=== PATIENT | female | born 1965 | race Caucasian/White ===

== ENCOUNTER 2016-08-23 08:41 | Day surgery (SDC) | payer OTHER ==
[2016-08-23] VITALS (13 sets, daily range): BP systolic 95–154; BP diastolic 59–95; PULSE 61–76; RESP 10–20; O2SAT 97–100
[~2016-08-23] VITALS: Ht 166.4 cm; Wt 53.4 kg
[2016-08-23] MEDS: Lactated Ringer's 1,000 ML IV SCH ×3 (05:00→10:50)
[~2016-08-23 08:41] MED LIST: ALPR2TAB6 PO; AMPH20TA5 PO; CeFAZolin Inj 2 GM in IV Premix 1 EACH IV ONE; ESTR1VAG VG; L.AC1CAP6 PO; PROZ20 PO
[2016-08-23] MEDS ORDERED: Dexamethasone 4 mg/mL Inj ONE (08:42)
[2016-08-23] MEDS ORDERED: Lidocaine PF 1% 30 mL Inj ONE (08:42)
[2016-08-23] MEDS ORDERED: Ondansetron 2 mg/mL 2 mL Inj ONE (08:42)
[2016-08-23] MEDS ORDERED: fentaNYL-PF 50 mCg/mL 2 mL Inj ONE (08:42)
[2016-08-23] MEDS ORDERED: Propofol 10,000 mCg/mL 20 mL Inj ONE (08:42)
[2016-08-23] MEDS ORDERED: Lactated Ringer's 1,000 ML IV SCH (10:30)
[2016-08-23] MEDS ORDERED: Dexamethasone 4 mg/mL Inj IVPUSH PRN (10:30)
[2016-08-23] MEDS ORDERED: Ondansetron 2 mg/mL 2 mL Inj IVPUSH PRN ×2 (10:30→13:20)
[2016-08-23] MEDS ORDERED: Phenylephrine 10,000 mCg/mL Inj IVPUSH PRN (10:30)
[2016-08-23] MEDS ORDERED: Lactated Ringer's 500 ML IV PRN (10:30)
[2016-08-23] MEDS ORDERED: EPHEDrine Sulfate 50 mg/mL Inj IVPUSH PRN (10:30)
[2016-08-23] MEDS ORDERED: MetoCLOpramide 5 mg/mL 2 mL Inj IVPUSH PRN (10:30)
[2016-08-23] MEDS ORDERED: fentaNYL-PF 50 mCg/mL 2 mL Inj IVPUSH PRN (10:30)
--- NOTE | 2016-08-23 10:30 | PCM.HPANE ---
Patient Data Date of Service: August 23, 2016 (2264) Surgeon Admitting Provider: Attending Provider:Pedro Griffin MD Primary Care Physician:Rosie Other Provider:Carlota Bolivar Anesthesia Reason for Visit Left Breast Cancer Ht/WT & BMI Height (Feet): 5 Height (Inches): 5.50 Weight (Kilograms): 53.4 Body Mass Index 19.00 Allergies Uncoded Allergies: OPIATES (Adverse Reaction, Severe, N&V, 08/20/16) Past Anesthesia History Anesthesia History: Denies:: Anesthesia Reactions, Malignant Hyperthermia Diabetes History Hx Diabetes?: No MRSA MRSA: No Medications Home Meds Incl Beta Mega: No Reported Medications Fluoxetine (Prozac)20 Mg [id number] Mg PO DAILY Ref 0 08/14/16 L.acidoph & Paracasei,B.lactis (Probiotic)10 Billion Cell Capsule2 Each PO DAILY 08/05/16 Estradiol (Estring)1 Each Vag.ring1 Each VG Q 90 DAYS 08/05/16 Alprazolam 2 Mg Tablet2 Mg PO TID PRN For Anxiety Ref 0 08/05/16 Amphet Asp/Amphet/D-Amphet (Adderall)20 Mg [id number] Mg PO BID Ref 0 TAKES 30MG IN AM; 20MG @ NOON 08/05/16 Discontinued Reported Medications [Krill Oil] No Conflict Check Po 08/05/16 [Cbd - Vape] No Conflict Check 08/05/16 [Vitamin D3] No Conflict Check Po 08/05/16 History History of ENT Problems?: Yes HEENT History: Denies:: Glaucoma (C/OF "FUZZY" VISION) Denture Type: None Teeth Condition: Within Normal Limits Other HEENT Pertinent History: C/OF ATYPICAL FACIAL PAIN S/P SURGICAL RPR OF RT LOWER LIP (DOGBITE INJURY),T&A Hx of Heart Problems?: Yes Cardiovascular History: Positive for:: Heart Murmur (REPORTED BY PT--NOT NOTED ON PHYSICAL EXAM BY SURGEONS) Denies:: Hypertension Other Cardiac History: HX OF ANEMIA Hx of Respiratory Problem?: No Respiratory History: Denies:: Use of C-PAP Machine Hx Neurologic Problems?: Yes Neurological History: Positive for:: Headaches Other Neurological Pertinent: C/OF DIFFICULTY W/ WORDS INTERMITTANTLY Hx of GI Problems?: Yes Other GI Pertinent History: UNINTENTIONAL WEIGHT LOSS OF 20# OVER LAST 6 MONTHS Hx of Problems?: Yes Female Hx: Positive for:: Problems with Breasts? (S/P LT BREAST BX LT BREAST CA=CURRENT PROBLEM) Denies:: Currently Skin History: Denies:: History Skin Disorders? Pressure Ulcers Hx Musculoskeletal Problems?: Yes Musculoskeletal History: Denies:: Back Injury (C/OF NECK PAIN) Hx of Psycho/Social Problems?: Yes Psycho Social History: Positive for:: Anxiety Hx Depression Hx Surgeries?: Yes (T&A,LT BREAST BX.SURG. RPR RT LOWER LIP) Hx Any Other Health Problems?: Yes Other History: Positive for:: Cancer (LT BREAST) Denies:: Endocrine Disease (C/OF NIGHT SWEATS) Hospitalization Thyroid Disease History Blood Transfusions: Denies:: Blood Transfusions Hx Diabetes: No Hx Alcohol Use: Yes (OCCAS)Have You Smoked inLast 12 mo: No Stop/Bang S-Snoring: Do You Snore Loudly: No T-Tired: feel tired, fatigued: Yes O-Obsered: Observed not breath: No P-Blood Pressure: treated: No B- Body Mass Index > 35 kg/m2: No A- Age over 50: Yes N- Neck Large Circumference: No G- Gender Male: No BHAVYA Total Score: 2 BHAVYA Risk Assessment: Low Risk, <3 Yes Risk Assessment Category Category 1A: Patient has history of documented sleep apnea, and HAS NOT received any narcotic, sedative or anesthesia administration during this stay. Category 1B: Patient has history of documented sleep apnea, and HAS received any narcotic , sedative or anesthesia administration during this stay Category 2: Patient has SUSPECTED Obstructive Sleep Apnea, and HAS received any narcotic , sedative or anesthesia administration during this stay. Category 3: Patient has SUSPECTED Obstructive Sleep Apnea and HAS NOT received narcotic, sedative or anesthesia administration during this stay. Category 4: Outpatient in Procedural Areas with known sleep apnea or who screen positive for High Risk via the STOP/BANG questionnaire. Exam Exam Vital Signs Vital Signs Date Time Temp Pulse Resp B/P Pulse Ox O2 Delivery O2 Flow Rate FiO2 08/23/16 09:22 36.3 63 16 110/74 100 Room Air General Appearance: Alert, Oriented X3, Cooperative HEENT/AIRWAY: MP 1 Lungs: Clear to Auscultation Heart: Exam Unremarkable Meds/Labs/Diagnostics Admission Meds Current Medications Lactated Ringer's (Lr) 1,000 ml @ 120 mls/hr Q8H20M IV Last administered on t 05:25; Start 08/23/16 at 05:00; Stop 08/23/16 at 13:19 Plan Impression Patient chart reviewed, patient interviewed and anesthestic plan with risks, benefits, and alternatives discussed, and informed consent obtained. NPO per Anesth. Guidelines: Yes ASA Physical Status: ASA2 Mod Systemic Disease Anesthetic Plan: GA Bene/Risks/Altern/Consents: Yes HP Complete Prior to Induction: Yes Roney Restrepo MD August 23, 2016 10:30
[2016-08-23] MEDS ORDERED: Bacitracin 50,000 unit Inj IRRIGATION ONE (10:50)
[2016-08-23] MEDS ORDERED: Bupivacaine-MPF 0.5% 30 mL Inj INFILTRATE ONE (10:50)
[2016-08-23] MEDS ORDERED: Morphine PCA 1 mg/mL 30 mL Inj IV PRN (13:20)
[2016-08-23] MEDS ORDERED: Acetaminophen IV 1,000 MG in IV Premix 1 EACH IV PRN (13:20)
[2016-08-23] MEDS ORDERED: Acetaminophen IV 1,000 MG in IV Premix 1 EACH IV ONE (13:25)
--- NOTE | 2016-08-23 13:33 | PCM.SURGOP ---
Surgical Operative Report Date of Service: August 23, 2016 Pre Operative Diagnosis Left breast invasive lobular carcinoma Post Operative Diagnosis Same Procedure: Bilateral skin sparing mastectomy, left axillary sentinel lymph node biopsy, immediate breast reconstruction with implant and tissue adult education teacher Surgeon and Multicultural Manager: Surgeon: Ascencion Mackenzie MD Assistants: Matt Pearson PA-C Indication for Procedure 50-year-old woman who developed a palpable mass in the inferior left breast. Mammographically, there was a 3.5 cm irregular high-density mass with spiculated margins in the 6 o'clock position posterior depth. By ultrasound, the lesion measured 2.5 x 2.2 x 1.9 cm. Biopsy demonstrated invasive lobular carcinoma, ER/RI positive, HER-2 negative (1+). She was not a good candidate for breast conserving surgery because of the large inferior tumor size with distortion of the skin. After meeting with Dr. Griffin, she decided to undergo bilateral skin sparing mastectomy with immediate breast reconstruction. After discussion of risks and benefits, she agreed to proceed. Findings: Clinically the inferior margin on the skin in the left breast seemed very close , but there was no remaining subcutaneous tissue to remove without removal of a fair amount of skin from the breast, which would have compromised the reconstruction somewhat. There were 2 sentinel nodes. The first sentinel node had an ex vivo gamma count of 200. The second sentinel node had a gamma count of 79. The background count was 1. Procedure Details Preoperatively, the patient underwent left breast injection for sentinel lymph node identification. She was marked preoperatively by Dr. Griffin. She was brought to the operating room, where she underwent smooth induction of general anesthesia. A De Dios catheter was placed. There was a good radiotracer signal in the left axilla. She was prepped and draped in wide sterile fashion. A procedural pause was performed according to the SCOAP checklist, and all were found to be in agreement. Right skin sparing mastectomy was performed first. An elliptical incision was made, encompassing the nipple areolar complex and a minimal amount of skin. Skin flaps were raised superiorly and inferiorly. Circumferential dissection was carried out with electrocautery as the skin and subcutaneous tissue was elevated off of the underlying breast capsule. Margins of dissection were the right clavicle, the midline, the right inframammary crease, and the right anterior axillary line. The right breast was then dissected off the underlying chest wall, and pectoralis fascia was resected en bloc. The axillary tail was divided. The right breast was oriented with suture, and sent for permanent pathology. At this point, Dr. Griffin began immediate subpectoral breast implant placement. Left skin sparing mastectomy was performed next. A similar elliptical skin incision was made, encompassing the nipple areolar complex. Skin flaps were raised superiorly and inferiorly. Circumferential dissection was carried out with electrocautery. Margins of dissection were the left clavicle, the midline, the left inframammary crease, and the left anterior axillary line. Inferiorly, the tumor seemed very close clinically to the skin. There was extremely little subcutaneous tissue remaining after the initial dissection, but it was not clear that the tumor actually involved the skin. Because it is lobular carcinoma, frozen sections were thought to not be clinically useful in this setting. The left breast was then dissected off the underlying chest wall, and pectoralis fascia was resected en bloc. The left axillary tail was divided. The left breast was oriented with suture, and sent for permanent pathology. A separate inferior skin margin was obtained by placing the inferior skin on tension with Ruben clamps, and using Metzenbaum scissors to dissect the small amount of remaining subcutaneous tissue. At this point, the margin of dissection was dermis, and there was absolutely no remaining subcutaneous tissue. The tissue was not able to be oriented, because it came out somewhat piecemeal. It was sent for permanent pathology. The left axillary fascia was incised with electrocautery. Using the gamma probe as a guide, the area of maximum radiotracer activity was dissected free from the surrounding tissue. There were actually 2 separate sentinel nodes. The first sentinel node had an ex vivo gamma count of 200. The second sentinel node had an ex vivo gamma count of 79. The background count in the left axilla was 1. Neither sentinel node was clinically worrisome. There were no remaining clinically worrisome nodes. Hemostasis was adequate. Dr. Griffin then performed tissue adult education teacher placement on the left side. 15 Cymro SANTO drains were placed on each side, and secured to the skin with 3-0 nylon suture. Please see Dr. schmidt noted for details of skin closure and dressing placement. At the end of the case all needle and sponge counts were correct 2. The patient was awakened from anesthesia without difficulty, and taken to the recovery room in satisfactory condition, having tolerated the procedure well. De Dios catheter was removed prior to waking up. Complications There were no periprocedural complications identified. Surgical Specimen Removed: Yes Specimen sent to Pathology: Yes Surgical Specimen description: Right breast. Left breast. Left inferior skin margin. Left axillary sentinel node #1. Left axillary sentinel node #2. Anesthetic Plan: GA Grafts, Implants: Implants-See Implant Record Output, Estimated Blood Loss: 20 Blood Administration during jarrell: No Drains: SANTO Drain #1, SANTO Drain #2 Catheters: Urethral 2 Way De Dios copies to: Tiago Cabrera MD; Jose Burgess DO; Yosi Spicer MD, Joshua D MD August 23, 2016 13:33
--- NOTE | 2016-08-23 13:58 | PCM.ANEP1 ---
Post Anesthesia PACU Phase 1 Assessment Vital Signs 137/90, 100%, 80, 16, 36.6 Vital Signs Date Time Temp Pulse Resp B/P Pulse Ox O2 Delivery O2 Flow Rate FiO2 08/23/16 09:22 36.3 63 16 110/74 100 Room Air Anesthetic Administered: GA Level of Alertness: Awake, talking STOKES's with Equal Strength: Yes Pain: No Nausea or Vomiting: No CV Function & Hydration Stable: Yes Airway Device: none Oxygen Delivery: Simple Mask Lungs: Clear to Auscultation Dermatome Level: Full Sensation Summary uneventful ga PACU Phase 2 Assessment Complications: No Follow up Care: No Patient Instructions Provided: N/A Roney Restrepo MD August 23, 2016 13:58
[2016-08-23] MEDS: Dextrose 5% Lactated Ringer's 1,000 ML IV SCH (15:53)
--- NOTE | 2016-08-23 18:15 | NUR ---
Arrival to Floor Patient arrives to floor from PACU at 1520. Patient alert and oriented, denies nausea, states pain is within a tolerable level. Bilateral surgical sites well approximated, bilateral SANTO drains draining sanguineous fluid. SCDs in place, ordered IV fluids administered, VOLUNTEER PATIENT REPRESENTATIVE with teaching in place, patient O2 sats in mid to upper 90 on room air. Care is ongoing.
[2016-08-23] MEDS: MetoCLOpramide 5 mg/mL 2 mL Inj IVPUSH PRN (21:45)
--- NOTE | 2016-08-23 23:24 | OP ---
[address] [address] OPERATIVE REPORT PATIENT: JESSIE EPPS : 1965 MR#: [id number] ADMIT: 08/23/2016 JOB ID: [id number] DATE OF SURGERY: 08/23/2016 PREOPERATIVE DIAGNOSIS(ES): Left breast cancer, lobular carcinoma, status post bilateral mastectomies. POSTOPERATIVE DIAGNOSIS(ES): Left breast cancer, lobular carcinoma, status post bilateral mastectomies. PROCEDURE: 1. Right immediate breast reconstruction (other methods). 2. Placement of AlloDerm soft tissue substitute. 3. Placement of right breast prosthesis for immediate breast reconstruction. 4. Placement of left breast tissue employee operations examiner. SURGEON: Pedro Griffin MD. CRAB STEAMER: Ronn Pearson PA-C, was present for necessary retraction, exposure, and closure of incisions. ANESTHESIA: General anesthesia. ESTIMATED BLOOD LOSS: 20 cc for plastic surgery portion of the procedure. IMPLANTS: 1. Right side: Allergan style 45, 320 cc, smooth round silicone implant. 2. Left side: Allergan NV-133, 12 cm tissue employee operations examiner, expanded to 250 cc. DRAINS: Bilateral #15 round Gianfranco drains, one on each side. COMPLICATIONS: None apparent. INDICATIONS FOR PROCEDURE: This is a 50-year-old female patient with a recent diagnosis of left breast cancer. Patient has decided to undergo bilateral mastectomies. Immediate reconstruction was decided and desired. PROCEDURES AND FINDINGS: The patient was identified in the preoperative area and surgical site was marked. With the patient in sitting position, I marked patient's midline as well as bilateral inframammary folds. Border of the breast was also marked laterally. A planned nipple sparing incision was also marked. The patient was then taken back to the operating room and placed supine on the operating table. Appropriate time-outs were taken. General anesthesia was then induced smoothly. At this point, Dr. Mackenzie proceeded with a simple mastectomy of the right breast. I presented back into the operating room after the mastectomy had been completed on the right side. Surgical site was examined. The flap appears to be viable. I first turned my attention to elevating the pectoralis major muscle. I used electrocautery to enter the subpectoral plane along the lateral border of the pectoralis major muscle. Once this had been done, blunt dissection was carried out along with electrocautery dissection to elevate the pectoralis major muscle off of the underlying rib cage. The inferior border of the pectoralis muscle was then divided off of its costal insertion to approximately 2 cm inferolateral to the costal attachment of the pectoralis major muscle. Superiorly, dissection was carried out in a subpectoral plane bluntly and with electrocautery all the way to the level of the clavicle. Once this has been done, a 6 x 16 cm of thick AlloDerm was obtained and rinsed in antibiotic solution. It was then placed into the surgical site. It was then sutured along the inframammary fold starting at the cut border of the pectoralis major muscle near its sternal attachment. This was then sutured along the inframammary fold and to the lateral border of the breast as previously marked before surgery. Superolaterally it was sutured to the point where the superior most dissection of the lateral edge of the pectoralis major muscle was where it continues to be attached to the chest wall. This was done with 2-0 PDS horizontal mattress sutures. Once this had been done, an Allergan 320 cc, style 45 smooth round implant was then obtained and rinsed in antibiotic solution. It was then placed into the subpectoral pocket and under the AlloDerm. The free edge of the AlloDerm and the free edge of the pectoralis major muscle was then reapproximated using several 3-0 Vicryl [id number] sutures. A #15 round Gianfranco drain was then placed along the inframammary fold exiting through a separate lateral stab incision. Once this had been done, the incision was then temporarily stapled together. Excess medial and lateral skin and soft tissue was marked. These areas were then incised with a #15 blade just down through the skin. The epithelialization was then carried out both medially and laterally. This allowed the excess tissue to be invaginated underneath the skin closure. Once this had been done, a layer of 3-0 Monocryl deep dermal sutures were then placed, followed by 4-0 Monocryl running subcuticular suture. At this point, Dr. Mackenzie has completed the left-sided mastectomy. During the dissection of the inferior flap, it was noted that the tumor is quite close to the skin. Due to this, an additional inferior margin was taken. There was also a question regarding what to do in terms of reconstruction. After careful consideration, we elected to just place a tissue employee operations examiner in the subcutaneous plane to, number one, retain the excess skin for future reconstruction. This will also serve to separate the inferior flap which could possibly be positive from the chest wall. Once this had been decided, I turned my attention to the left breast. Again, the pocket was made hemostatic. The inferior flap again was quite thin, but it does have delayed refill; however, the skin flap does have refill. An [employer] Savvy NV-133 12 cm tissue employee operations examiner was then obtained. Air was removed. I then filled the tissue employee operations examiner with 250 cc of air. It was then placed into the subcutaneous pocket. I manipulated the skin to allow the skin to drape smoothly. Once this had been done, a #15 round Gianfranco drain was then placed through a separate lateral stab incision. It was routed up to the site of sternal lymph node dissection, back down to the inframammary fold, and ran along the inframammary fold medially. A layer of 3-0 Monocryl deep dermal suture was then placed followed by 4-0 Monocryl running subcuticular suture. The patient tolerated the procedure well. Needle count, sponge count, and instrument counts were correct at the end of the procedure. The patient was extubated and transported to recovery in a stable condition.
[2016-08-24 00:26] VITALS: RESP 16; O2SAT 95
[2016-08-24] MEDS: Dextrose 5% Lactated Ringer's 1,000 ML IV SCH (02:36)
--- NOTE | 2016-08-24 04:25 | NUR ---
NAUSEA Reported nausea x2 this shift, no vomiting. Reglan given and was effective. Hourly rounding.
[2016-08-24] MEDS: MetoCLOpramide 5 mg/mL 2 mL Inj IVPUSH PRN ×2 (04:37→08:46)
[2016-08-24 05:00] VITALS: RESP 18; O2SAT 100
[2016-08-24 05:07] VITALS: BP 93/58; PULSE 75; RESP 20; O2SAT 98
[2016-08-24 05:31] LABS: Mean Corpuscular Volume 96.8 fL (81-100)
[2016-08-24 06:28] VITALS: RESP 18; O2SAT 97
--- NOTE | 2016-08-24 08:35 | PCM.DISURG ---
Surgical Discharge Instruction Date of Service August 24, 2016 Dates of Hospitalization Date of Hospital Admission Providers Admitting Physician: Primary Care Physician: Rosie Attending Physician: Pedro Griffin MD Discharge Diagnosis Discharge Diagnosis Breast cancer Post Operative diagnosis Same Diet Discharge Diet: No restrictions Activity Discharge Activity-General: Be up and about, Balance rest and activity Follow Up Plan Follow Up Plan Dr Griffin will call you next week. Call your provider for: Fever, Chills, Nausea, Vomiting, Wound redness Alexi Law MD August 24, 2016 08:35
[2016-08-24] MEDS ORDERED: ONDA-53 PO (08:37)
[2016-08-24 09:08] VITALS: RESP 15; O2SAT 99
--- NOTE | 2016-08-24 09:28 | DIS ---
[address] [address] DISCHARGE SUMMARY PATIENT: JESSIE EPPS : 1965 MR#: [id number] ADMIT: 08/23/2016 JOB ID: [id number] DIS: DATE OF ADMISSION: 08/23/2016 DATE OF DISCHARGE: 08/24/2016 ADMISSION DIAGNOSIS: Left breast cancer. MAJOR PROCEDURE: On inpatient stay is bilateral skin sparing mastectomies with implant and tissue application programmer analyst placement. INDICATION/SIGNIFICANT HISTORY: The patient is a 50-year-old woman who developed a palpable mass in the inferior left breast. This is found by biopsy to be basal lobular carcinoma. She was considered, by her surgeon, not to be a good candidate for breast conservation surgery and therefore on the day of admission, underwent bilateral skin sparing mastectomies, left axillary sentinel lymph node biopsy as well as immediate breast reconstruction with implant tissue application programmer analyst. She was admitted to the floor for overnight observation with a LDR RN. Postop day one, she was overall doing well. Her LDR RN was transitioned to oral pain medications. She was having some mild nausea. After successful transition she was discharged home with plans to talk with her plastic surgeon next week concerning drain removal. DISCHARGE EXAMINATION: On day of discharge, she was afebrile and hemodynamically normal. She appeared comfortable in no acute distress. Her bilateral breast incisions were inspected. Incisions were intact. The breast was soft with no evidence of hematoma. There was some ecchymosis particularly in the left breast. SANTO drains were in place with serosanguineous output. The drain tube put out 170 from SANTO drain one and 90 from SANTO drain two with additional 120 and 60 overnight. LABORATORY STUDIES: Her white blood cell count was 12 on day of discharge. Hematocrit was 26.9. Her creatinine was 0.55 DISCHARGE PLANS: The patient was discharged home with a prescription for clindamycin, morphine for pain control and ondansetron as well as MiraLAX. She was given instructions regarding drain management. She will call the clinic early next week to discuss drain removal.
[2016-08-24 09:32] VITALS: BP 107/68; PULSE 79; RESP 18; O2SAT 100
--- NOTE | 2016-08-24 10:43 | NUR ---
Nausea/ pain/discharge Discontinued CONTINUOUS VULCANIZING MACHINE OPERATOR MS per surgeon orders. New orders for PO morphine. PRN given with effective results for pain 5/10 to 2/10 when not moving. PRN anti nausea given with some improvement. new orders for discharge but patient wants to wait until nausea completely resolved. charge nurse aware.
--- NOTE | 2016-08-24 11:54 | NUR ---
Nausea Patient received PRN Zofran and PRN benadryl with some improvement with nausea. Tolerating PO fluids. Patient ordered lunch and prefers to eat lunch if nausea completely resolves.
--- NOTE | 2016-08-24 12:54 | NUR ---
Discharge Reviewed discharge paper work, discharge instruction per surgeon, New prescriptions and understood, signed the discharge paper work. patient left unit via wheel chair approx [phone] with accompained by nursing staff. prior to discharge denies nausea and pain. patient tolerated lunch well with out futher nausea. written care notes provided for SANTO drain care and mastectomy. Charge nurse provided SANTO drain care supplies and further education. Peripheral IV discontinued to right hand with out difficulty.
--- NOTE | 2016-08-24 15:08 | NUR ---
Social Work Note: Reviewed chart. Pt. is a 50yr old female admitted ([facility]) for mastectomy (h/o left breast CA). Primary payor is [facility]. No PCP listed. ADVERTISING DISPATCH CLERKS SUPERVISOR attempted to meet with pt. for any d/c planning needs but pt. had already discharged. Nrsg staff report no identified needs. P: Home today. GEETA De Dios
--- NOTE | 2016-08-27 11:15 | DRSVH ---
PROCEDURE: NM SENTINEL NODE INJECTION ONLY, LEFT BREAST RADIOPHARMACEUTICAL: 0.5 mCi Millipore filtered Tc-99m sulfur colloid. INDICATIONS: LEFT BREAST CANCER PROCEDURE: The indications, alternatives, benefits, risks, and complications of the procedure were explained to the patient. Written informed consent was obtained and placed in the chart. The area around the nip ple was prepped and draped in a sterile fashion. Tc-99m sulfur colloid was injected in the outer edg e of the areola in the left breast. No image was obtained. IMPRESSION: Administration of radiotracer into the left breast periareolar region for intra-operativ e sentinel lymph node localization. Dictated by: Genaro Higgins M.D. on 08/27/2016 at 11:13 Approved by: Genaro Higgins M.D. on 08/27/2016 at 11:13
--- NOTE | 2016-08-27 15:34 | PATH ---
SURGICAL PATHOLOGY Attending Physician:Chris Lynch CASE STATUS: Signed Out PATIENT NAME: JESSIE EPPS PID: [id number] : 1965 DATE COLLECTED:08/23/2016 00:00 SPECIMEN: 1: Breast, Simple Mastectomy (w/o lymph nodes) 2: Breast, Simple Mastectomy (w/o lymph nodes) 3: Breast Margin 4: Harrison Lymph Node 5: Harrison Lymph Node CLINICAL HISTORY: LEFT BREAST CANCER 1). RIGHT BREAST, SHORT STITCH SUPERIOR, LONG LATERAL, OUT 12:02 FORMALIN 14:07 2). LEFT BREAST SHORT SUPERIOR, LONG LATERAL OUT 12:41 FORMALIN 14:08 3). LEFT INFERIOR SKIN MARGIN, OUT 12:52 FORMALIN 12:54 4). LEFT AXILLARY SENTINEL LYMPH NODE # 1, OUT 13:00 FORMALIN 13:10 5). LEFT AXILLARY SENTINEL LYMPH NODE #2, OUT 13:07 FORMALIN 13:10 FINAL DIAGNOSIS: 1.RIGHT BREAST, SIMPLE MASTECTOMY: SMALL FOCI OF ADENOSIS. NO EVIDENCE OF INVASIVE CARCINOMA, DUCTAL CARCINOMA IN SITU, OR CYTOLOGIC ATYPIA. 2.LEFT BREAST, SIMPLE MASTECTOMY: CAP CANCER CASE SUMMARY INVASIVE CARCINOMA OF THE BREAST: PROCEDURE: SIMPLE MASTECTOMY LYMPH NODE SAMPLING: SENTINEL NODES EXAMINED SPECIMEN LATERALITY: LEFT TUMOR SITE: NOT IDENTIFIED TUMOR SIZE: 3.2 X 2.7 X 2.5 CM HISTOLOGIC TYPE: INVASIVE LOBULAR CARCINOMA HISTOLOGIC GRADE: LUIS ENRIQUE HISTOLOGIC SCORE Glandular/Tubular differentiation: Score 3 Nuclear Pleomorphism: Score 2 Mitotic Rate: Score 1 Overall Grade: Grade 2 TUMOR FOCALITY: SINGLE FOCUS DUCTAL CARCINOMA IN SITU: NOT IDENTIFIED LOBULAR CARCINOMA IN SITU: IDENTIFIED. MACROSCOPIC AND MICROSCOPIC EXTENT OF TUMOR SKIN: UNINVOLVED NIPPLE: UNINVOLVED SKELETAL MUSCLE: UNINVOLVED MARGINS INVASIVE CARCINOMA: Anterior: 5 MM Posterior: 3 MM Superior: GREATER THAN 1.0 CM Inferior: GREATER THAN 1.0 CM Medial: GREATER THAN 1.0 CM Lateral: GREATER THAN 1.0 CM LYMPH NODES Total number of lymph nodes examined: 2 Number of sentinel lymph nodes examined: 2 Lymph Node Involvement: Number of lymph nodes with macrometastases: 2 Number of lymph nodes with micrometastases: 0 Number of lymph nodes with isolated tumor cells: 0 Extranodal Extension: NOT IDENTIFIED Method of Evaluation of Harrison Lymph Nodes: PERMANENT SECTIONS TREATMENT EFFECT: Response to Presurgical Therapy Breast: NOT IDENTIFIED Lymph nodes: NOT IDENTIFIED LYMPH-VASCULAR INVASION: PRESENT DERMAL LYMPH-VASCULAR INVASION: NOT IDENTIFIED PATHOLOGIC STAGING: AJCC, 7th ed., 2010 PRIMARY TUMOR: pT2 REGIONAL LYMPH NODES: pN1a (sentinel) ANCILLARY STUDIES: Biomarkers Performed Previously on Case: [id number] Estrogen Receptor (ER) Status: POSITIVE (70%), MODERATE INTENSITY Progesterone Receptor (PgR) Status: POSITIVE (80%), STRONG INTENSITY HER2 (by immunohistochemistry): NEGATIVE FOR OVEREXPRESSION (1+) 3.LEFT INFERIOR SKIN MARGIN: NEGATIVE FOR INFILTRATING CARCINOMA AND DUCTAL CARCINOMA IN SITU. 4.LEFT AXILLARY SENTINEL NODE #1: ONE LYMPH NODE POSITIVE FOR METASATIC CARCINOMA. MAXIMUM DIMENSION: 7 MM. TUMOR IS CONFINED WITHIN THE LYMPH NODE CAPSULE. 5.LEFT AXILLARY SENTINEL NODE #2: ONE LYMPH NODE POSITIVE FOR METASTATIC CARCINOMA. MAXIMUM DIMENSION: 5 MM. TUMOR IS CONFINED WITHIN THE LYMPH NODE CAPSULE. ICD10 C50.9 GROSS DESCRIPTION: The specimens are received in formalin, labeled with the patient's name, and sublabeled as the following: (1) right breast; (2) left breast; (3) left inferior skin margin; (4) left axillary Harrison lymph node #1; (5) left axillary lymph nodes #2. (1) The specimen consists of a right breast (3.2 cm AP, 14.2 cm SI, 15.0 cm ML) partially covered by an ellipse of skin (2.5 cm SI, 7.5 cm ML) with nipple/areola complex (3.8 x 2.5 cm). The axillary tail is absent. The specimen is oriented with 2 black sutures (short-superior, long-lateral). No localization wire is present. The breast tissue is fibrofatty with no nodules, masses or lesions identified. The skin and nipple/areola complex are waters-white and unremarkable. Ink code: purple-anterior; yellow-posterior; black-superior; orange-inferior; green-medial; blue-lateral. Section code: (1A) nipple; (1B) skin; (1C, 1D) upper outer quadrant; (1E, 1F) lower outer quadrant; (1G, 1H) upper inner quadrant; (1I, 1J) lower inner quadrant. (2) The specimen consists of a left breast (3.3 cm AP, 17.0 cm SI, 13.0 cm ML) partially covered by an ellipse of skin (2.8 cm SI, 7.0 cm ML) with nipple/areola complex (3.6 x2.8 cm). The axillary tail is absent. The specimen is oriented with 2 black sutures (short-superior, long-lateral). No localization wire is present. The specimen is serially sectioned ML into 34 slices with the medial and lateral resection margins as slices #1 and #34 respectively. The breast tissue is fibrofatty and contains a campbell-white solid firm irregular mass (3.2 x 2.7 x 2.5 cm) within slices #12-#22. The mass is located at approximately 6:00 and is 0.5 cm from the anterior, 0.3 cm from the posterior, 13.8 cm from the superior, 1.3 cm from the inferior, 4.5 cm from the medial, and 5.8 cm from the lateral resection margins. No other nodules, masses or lesions are identified. The skin and nipple/areola complex are waters-white and unremarkable. Ink code: purple-anterior; yellow-posterior; black-superior; orange-inferior; green-medial; blue-lateral. Section code: (2A) nipple; (2B) skin; (2C) medial resection margin, perpendicularly sectioned, cordage sales representative; (2D) slice #11, tissue adjacent to mass, cordage sales representative; (2E) slice #12, cordage sales representative; (2F) slice #13, cordage sales representative; (2G) slice #14, cordage sales representative; (2H) slice #15, cordage sales representative; (2I) slice #16, cordage sales representative; (2J) slice #17, cordage sales representative; (2K-2L) slice #18, cordage sales representative; (2M) slice #19, cordage sales representative; (2N) slice #20, cordage sales representative; (2O) slice #21, cordage sales representative; (2P) slice #22, cordage sales representative; (2Q) slice #23, tissue adjacent to mass, cordage sales representative; (2R) lateral resection margin, perpendicularly sectioned, cordage sales representative. (3) The specimen consists of multiple unoriented pieces of subcutaneous tissue (3.8 x 2.3 x 1.0 cm in aggregate). The tissue is fibrofatty with no nodules, masses or lesions identified. Section code: (3A, 3B) tissue. Specimen entirely submitted. (4) The specimen consists of a lymph node (1.3 x 0.9 x 0.5 cm). Section code: (4A) one lymph node, serially sectioned.. Specimen entirely submitted. (5) The specimen consists of a lymph node (1.5 x 1.3 x 0.6 cm). Section code: (5A) one lymph node, serially sectioned. Specimen entirely submitted. Note: Approximate total fixation time in formalin are all specimens-50 hours and 30 minutes using a collection date of August 23, 2016 with times in formalin [id number]. 08/24/16 MICRO DESCRIPTION: See diagnosis. ICD-9 CODES: CPT CODES: 1: 96292 2: 21121 3: 96225 4: 59820 5: 27522 Electronically Signed Out Edmar Adams MD [facility] [address], [place] [address] Technical component performed at [facility], [facility] [address], [place], [address]
[2016-09-09] MEDS ORDERED: MORP15TA PO (11:27)
== END 2016-08-24 12:55 | disposition home or self-care (01) ==
LOC: SAS 08:41 → OSC 15:05 → SAS 08-24 12:55
PROVIDERS: ATTEND Plastic Surgery
DX: C50.912 Malignant neoplasm of unspecified site of left female breast (principal); C77.3 Secondary and unspecified malignant neoplasm of axilla and upper limb lymph nodes; Z17.0 Estrogen receptor positive status [ER+]; F41.9 Anxiety disorder, unspecified; F34.1 Dysthymic disorder; R01.1 Cardiac murmur, unspecified; D64.9 Anemia, unspecified; N39.3 Stress incontinence (female) (male); F98.8 Other specified behavioral and emotional disorders with onset usually occurring in childhood and adolescence
CPT/HCPCS: 15777; 19303; 19340; 19366; 36415; 38525; 38792; 80048; 85027; A9541; C1789; J0690; J1100; J1200; J2250; J2270; J2405; J2765; J3010; J7120; Q4116

== ENCOUNTER 2016-09-06 10:14 | Day surgery (SDC) | payer OTHER ==
[2016-09-06] VITALS (12 sets, daily range): BP systolic 102–147; BP diastolic 68–89; PULSE 80–101; RESP 10–17; O2SAT 94–100
[~2016-09-06] VITALS: Ht 165.1 cm; Wt 54.8 kg
[2016-09-06] MEDS: Lactated Ringer's 1,000 ML IV SCH ×2 (05:30→11:51)
--- NOTE | 2016-09-06 06:37 | PCM.HPANE ---
Patient Data Surgeon Admitting Provider: Attending Provider:Pedro Griffin MD Primary Care Physician:Other,Physician Other Provider:Carlota Bolivar Anesthesia Reason for Visit Breast Cancer, Breast Reconstruction Ht/WT & BMI Height (Feet): 5 Height (Inches): 5 Weight (Kilograms): 53 Body Mass Index 19.00 Allergies Uncoded Allergies: OPIATES (Adverse Reaction, Severe, N&V, 08/20/16) Past Anesthesia History Anesthesia History: Denies:: Anesthesia Reactions, Fam Anesthesia Reaction, Fam Malignant Hypertherm, Malignant Hyperthermia Diabetes History Hx Diabetes?: No MRSA MRSA: No Medications Active Scripts Ondansetron 4 Mg Tablet4 Mg PO TID PRN For Nausea #20 TABLET Prov:Alexi Law MD 08/24/16 Reported Medications Fluoxetine (Prozac)20 Mg Lcgfuhp25 Mg PO DAILY Ref 0 08/14/16 L.acidoph & Paracasei,B.lactis (Probiotic)10 Billion Cell Capsule2 Each PO DAILY 08/05/16 Estradiol (Estring)1 Each Vag.ring1 Each VG Q 90 DAYS 08/05/16 Alprazolam 2 Mg Tablet2 Mg PO TID PRN For Anxiety Ref 0 08/05/16 Amphet Asp/Amphet/D-Amphet (Adderall)20 Mg [id number] Mg PO BID Ref 0 TAKES 30MG IN AM; 20MG @ NOON 08/05/16 History History of ENT Problems?: No HEENT History: Denies:: TMJ (atypical facial pain) Denture Type: None Teeth Condition: Within Normal Limits Hx of Heart Problems?: Yes Cardiovascular History: Positive for:: Heart Murmur Denies:: Hypertension Hx of Respiratory Problem?: No Respiratory History: Denies:: Oxygen Administration Use of C-PAP Machine Hx Neurologic Problems?: Yes Neurological History: Positive for:: Headaches Hx of GI Problems?: Yes Hx of Problems?: Yes Female Hx: Positive for:: Problems with Breasts? (breast cancer- current admission problem) Denies:: Currently Skin History: Positive for:: History Skin Disorders? (small blister right side chest- middle top right breast) Denies:: Pressure Ulcers Hx Musculoskeletal Problems?: Yes Musculoskeletal History: Denies:: Back Injury Hx of Psycho/Social Problems?: Yes Psycho Social History: Positive for:: Anxiety Hx Depression Hx Surgeries?: Yes (T&A,LT BREAST BX.SURG. RPR RT LOWER LIP) Hx Any Other Health Problems?: Yes Other History: Positive for:: Cancer (left breast current admission) Denies:: Endocrine Disease Hospitalization Thyroid Disease History Blood Transfusions: Denies:: Blood Transfusions Hx Diabetes: No Hx Alcohol Use: Yes (OCCAS) Smoking Status: Never Smoker Have You Smoked inLast 12 mo: No Stop/Bang P-Blood Pressure: treated: No B- Body Mass Index > 35 kg/m2: No A- Age over 50: Yes N- Neck Large Circumference: No BHAVYA Risk Assessment: Low Risk, <3 Yes Risk Assessment Category Category 1A: Patient has history of documented sleep apnea, and HAS NOT received any narcotic, sedative or anesthesia administration during this stay. Category 1B: Patient has history of documented sleep apnea, and HAS received any narcotic , sedative or anesthesia administration during this stay Category 2: Patient has SUSPECTED Obstructive Sleep Apnea, and HAS received any narcotic , sedative or anesthesia administration during this stay. Category 3: Patient has SUSPECTED Obstructive Sleep Apnea and HAS NOT received narcotic, sedative or anesthesia administration during this stay. Category 4: Outpatient in Procedural Areas with known sleep apnea or who screen positive for High Risk via the STOP/BANG questionnaire. Exam Exam General Appearance: Alert, Oriented X3, Cooperative, No Acute Distress HEENT/AIRWAY: MP 2 Lungs: Clear to Auscultation, Normal Air Movement Heart: Exam Unremarkable, Regular Rate/Rhythm, No Murmurs/Rubs/Gallops Meds/Labs/Diagnostics Admission Meds Current Medications Lactated Ringer's (Lr) 1,000 ml @ 120 mls/hr Q8H20M IV Last administered on t 05:30; Start 09/06/16 at 05:00; Stop 09/06/16 at 13:19 Plan Impression Patient chart reviewed, patient interviewed and anesthestic plan with risks, benefits, and alternatives discussed, and informed consent obtained. NPO per Anesth. Guidelines: Yes ASA Physical Status: ASA2 Mod Systemic Disease Anesthetic Plan: GA Bene/Risks/Altern/Consents: Yes HP Complete Prior to Induction: Yes Other po morphine this morning Anibal Culver MD Sep 06, 2016 06:37
[~2016-09-06 10:14] MED LIST changes: +CeFAZolin Inj 2 GM in IV Premix 1 EACH IV SCH; +Lactated Ringer's 1,000 ML IV SCH; +ONDA-53 PO
[2016-09-06] MEDS ORDERED: Dexamethasone 4 mg/mL Inj ONE (10:15)
[2016-09-06] MEDS ORDERED: fentaNYL-PF 50 mCg/mL 2 mL Inj ONE (10:15)
[2016-09-06] MEDS ORDERED: Ondansetron 2 mg/mL 2 mL Inj ONE (10:15)
[2016-09-06] MEDS ORDERED: HYDROmorphone 2 mg/mL Inj ONE (10:15)
[2016-09-06] MEDS ORDERED: EPHEDrine/NS 5 mg/mL 5 mL Syringe ONE (10:15)
[2016-09-06] MEDS ORDERED: Propofol 10,000 mCg/mL 20 mL Inj ONE (10:15)
[2016-09-06] MEDS ORDERED: HepLOK Flush 100 unit/mL 5 mL Inj IVFLUSH ONE ×2 (12:23)
[2016-09-06] MEDS ORDERED: Bupivacaine-MPF 0.5% W/EPI 30 mL Inj INFILTRATE ONE (12:24)
[2016-09-06] MEDS ORDERED: Lactated Ringer's 1,000 ML IV SCH (12:29)
[2016-09-06] MEDS ORDERED: Dexamethasone 4 mg/mL Inj IVPUSH PRN (12:30)
[2016-09-06] MEDS ORDERED: Atropine 0.4 mg/mL Inj IVPUSH PRN (12:30)
[2016-09-06] MEDS ORDERED: EPHEDrine Sulfate 50 mg/mL Inj IVPUSH PRN (12:30)
[2016-09-06] MEDS ORDERED: Labetalol 5 mg/mL 4 mL Inj IV PRN (12:30)
[2016-09-06] MEDS ORDERED: MetoCLOpramide 5 mg/mL 2 mL Inj IVPUSH PRN (12:30)
[2016-09-06] MEDS ORDERED: HYDROmorphone 1 mg/mL Inj IVPUSH PRN (12:30)
[2016-09-06] MEDS ORDERED: Ondansetron 2 mg/mL 2 mL Inj IVPUSH PRN ×2 (12:30→15:55)
[2016-09-06] MEDS ORDERED: Phenylephrine 10,000 mCg/mL Inj IVPUSH PRN (12:30)
--- NOTE | 2016-09-06 13:40 | PCM.SURGOP ---
Surgical Operative Report Date of Service: Sep 06, 2016 Pre Operative Diagnosis Left breast invasive lobular carcinoma Post Operative Diagnosis Same Procedure: Left axillary lymph node dissection, right internal jugular central venous catheter with power port, intraoperative ultrasound guidance, intraoperative fluoroscopy with interpretation Surgeon and Merchandise Flow Team Leader: Surgeon: Ascencion Mackenzie MD Assistants: Matt Pearson PA-C Indication for Procedure 50-year-old woman who recently underwent bilateral skin sparing mastectomy with left axillary sentinel lymph node biopsy. Her final pathology showed T2 N1a invasive lobular carcinoma. She had 2 sentinel nodes, both of which were positive without extranodal extension. Margins on the primary tumor were negative. She was recommended to undergo completion lymphadenectomy in the left axilla, as well as order catheter placement for chemotherapy. At the same time, she had a subcutaneous tissue core shaper sides, and plans were made with Dr. Griffin to convert that to a subpectoral tissue core shaper sides. Findings: There were no other pathologically enlarged lymph nodes, although several were somewhat firm, either reactive, or malignant. The right internal jugular vein was patent. The port was placed in the right internal jugular vein with ultrasound guidance, and the tip was positioned at the cavoatrial junction. Procedure Details After smooth induction of general anesthesia with an LMA, she was placed in the supine position with the left arm out. The right internal jugular vein was assessed with ultrasound, and found to be patent and compressible. She was prepped and draped in wide sterile fashion. A procedural pause was performed according to the SCOAP checklist, and all were found to be in agreement. The patient was placed in Trendelenburg position. The right neck was anesthetized with half percent Marcaine with epinephrine. Using ultrasound guidance, the right internal jugular vein was accessed with a finder needle in a single pass. The 0.018 inch wire was passed through the needle, and confirmed with fluoroscopy to be in the inferior vena cava. The micro-sheath was passed over the wire. The wire was removed, and the 0.035 inch wire was passed through the micro-sheath into the inferior vena cava, confirmed with fluoroscopy. The right chest was anesthetized with local anesthetic. A transverse incision was made, and the subcutaneous pocket was created. The port reservoir was sutured to the subcutaneous pocket with 3-0 Vicryl sutures. The tear-away sheath and dilator was passed over the wire into the vena cava, under fluoroscopic guidance. The catheter was then tunneled through the subcutaneous space to the right neck venipuncture site. The catheter was passed through the tear-away sheath and positioned at the cavoatrial junction. The tear-away sheath was removed. The catheter was cut to size, and connected to the port reservoir. The port flushed and aspirated easily. A final fluoroscopic view of the catheter was obtained with the patient flat. The port was flushed with a final heparin flush, 100 units per mL. The subcutaneous pocket and venipuncture site in the neck were closed with running 4-0 Monocryl subcuticular stitches. Dermabond was applied to the skin as a dressing. A curvilinear transverse incision was then made in the left axilla at the inferior border of the hairbearing skin. Dissection was carried through the subcutaneous tissue until the axillary fascia was incised. The left axillary vein was identified and skeletonized. There was a single significant venous branch off the inferior aspect, which was divided with the LigaSure device. The long thoracic and thoracodorsal nerves were visualized and dissected out from the surrounding tissue. A complete level I and level II lymph node dissection was then performed. Loose areolar node bearing tissue was swept out of the apex of the axilla once the nerves were identified. Dissection was performed with the LigaSure device. Borders of dissection were the axillary vein, the lateral border of the pectoralis muscle and chest wall, the latissimus dorsi muscle, and the edge of the breast tissue. All node bearing tissue was swept out of the axilla, and at the remainder of dissection, there was no remaining anisa tissue, only muscle, long thoracic nerve, thoracodorsal nerve, and axillary vein. The axillary dissection was sent for permanent pathology. It contained some slightly firm nodes, although not pathologically enlarged, possibly reactive versus malignant. There is no remaining abnormal anisa tissue in the subpectoral space by palpation. Hemostasis was adequate. The axillary fascia was closed with interrupted 3-0 Vicryl suture. The skin incision was closed with a running 4-0 Monocryl subcuticular stitch. Dermabond was applied to the skin as a dressing. At this point, Dr. Griffin performed exchange of her subcutaneous tissue core shaper sides for subpectoral tissue core shaper sides placement. Please see separate his dictated operative report for details. At the end of the case all needle and sponge counts were correct 2. The patient was awakened from anesthesia without difficulty, and taken to the recovery room in satisfactory condition, having tolerated the procedure well. Complications There were no periprocedural complications identified. Surgical Specimen Removed: Yes Specimen sent to Pathology: Yes Surgical Specimen description: Left axillary lymph node dissection. Anesthetic Plan: GA Grafts, Implants: Implants-See Implant Record Output, Estimated Blood Loss: 20 Blood Administration during jarrell: No Drains: SANTO Drain #1 Catheters: None copies to: Jose Burgess Joshua D MD Sep 06, 2016 13:40
[2016-09-06] MEDS: Lactated Ringer's 500 ML IV PRN ×2 (14:42→19:15)
--- NOTE | 2016-09-06 15:10 | PCM.ANEP1 ---
Post Anesthesia PACU Phase 1 Assessment Vital Signs Vital Signs Date Time Temp Pulse Resp B/P Pulse Ox O2 Delivery O2 Flow Rate FiO2 09/06/16 10:45 36.2 80 16 102/70 100 Room Air Anesthetic Administered: GA Level of Alertness: Awake, talking STOKES's with Equal Strength: No Pain: No Nausea or Vomiting: No CV Function & Hydration Stable: Yes Airway Device: Oxygen Delivery: Simple Mask Lungs: Clear to Auscultation, Normal Air Movement PACU Phase 2 Assessment Complications: No Follow up Care: No Patient Instructions Provided: N/A Anibal Culver MD Sep 06, 2016 15:10
[2016-09-06] MEDS: fentaNYL-PF 50 mCg/mL 2 mL Inj IVPUSH PRN ×2 (15:15→15:30)
--- NOTE | 2016-09-07 05:41 | OP ---
[address] [address] OPERATIVE REPORT PATIENT: JESSIE EPPS : 1965 MR#: [id number] ADMIT: 09/06/2016 JOB ID: [id number] DATE OF SURGERY: 09/06/2016 PREOPERATIVE DIAGNOSIS(ES): Left-sided breast cancer, status post bilateral mastectomy. POSTOPERATIVE DIAGNOSIS(ES): Left-sided breast cancer, status post bilateral mastectomy. PROCEDURE: 1. Removal of left breast tissue veterinary bacteriologist. 2. Delayed left breast reconstruction with tissue veterinary bacteriologist placement in a submuscular pocket. 3. Placement of AlloDerm to the left breast reconstruction. SURGEON: Pedro Griffin MD NURSING HOME ASSISTANT: Ronn Pearson PA-C was present for necessary retraction, exposure, and closure of incisions. ANESTHESIA: General anesthesia. ESTIMATED BLOOD LOSS: 5 cc for Plastic Surgery portion of procedure. SPECIMENS: None for Plastic Surgery portion of procedure. DRAINS: #15 round Gianfranco drain x1. IMPLANT: Allergan MV 133-14, 14 cm tissue veterinary bacteriologist filled to 300 cc. INDICATIONS FOR PROCEDURE: This is a 50-year-old female patient with a newly diagnosed left breast cancer. Patient was taken back to the operating room on August 23, for bilateral mastectomy with left-sided sentinel lymph node biopsy. A right-sided breast reconstruction was carried out using a one stage reconstruction. However, the tumor was quite close to the inferior skin flap on the left. At that time, it was decided to delay the reconstruction. A tissue veterinary bacteriologist was placed in a subcutaneous plane to keep the skin from retracting. Pathology report demonstrated a negative surgical margin. However, the patient had possible lymph node, and will undergo radiation therapy and chemotherapy. It was decided to reconstruct the left breast in a staged manner in a delayed manner. PROCEDURES AND FINDINGS: The patient was identified in the preoperative area. Surgical site was marked. With patient in sitting position, I marked the desired left-sided inframammary fold using the right side as a template. The border of the breast was also marked. The patient was then taken back to the operating room and placed supine on the operating table. Appropriate time-outs were taken. At this point, Dr. Mackenzie arrived to perform his portion of the procedure, which included a left-sided axillary lymph node dissection and PowerPort placement. Once he had been done, I returned to the operating room to perform my portion of the procedure. It was noted that the left axillary incision continued to be open. Patient's skin flap appeared to be viable. There was a very small portion of marginal necrosis, approximately 1 mm x 2 cm in the central portion of the incision. The patient's previous mastectomy incision was then opened. The tissue veterinary bacteriologist was removed. It was noted that the patient had a hematoma along the medial border and superior border of the dissection pocket. This was removed with aspiration, as well as using a lap. At this point, I detached the skin flap from the pectoralis major muscle superiorly, where it had reattached back down. This loosened up the skin flap. I then dissected along the inferior aspect of the subcutaneous pocket to lower the inframammary fold down to the desired location. Using electrocautery, I elevated the lateral border of the pectoralis major muscle off of the chest wall. I then performed blunt dissection using my finger to enter the subpectoral plane. I then dissected bluntly as much as I could to create the pocket of the tissue veterinary bacteriologist. Once this has been done, using electrocautery, I elevated the costal attachment of the pectoralis major muscle and fascia off of the rib cage until I reached the level of the inframammary fold, where the fascia and muscle was incised. Hemostasis was then obtained with electrocautery. An AlloDerm was then obtained and placed into the surgical site. It was then sutured along the inframammary fold inferiorly. Laterally, I sutured the AlloDerm to the chest wall at a location corresponding to previously marked lateral border of the breast. Once this had been done, an Allergan MV-[id number] 14 cm tissue veterinary bacteriologist was then obtained. Air was removed. The tissue veterinary bacteriologist was then soaked in antibiotic solution, placed into the subpectoral pocket, and underneath the AlloDerm. Once this had been done, the free edge of the AlloDerm was sutured to the free edge of the pectoralis major muscle using several 3-0 Vicryl horizontal mattress sutures. Care was taken to protect the tissue veterinary bacteriologist. Once this had been done, the tissue veterinary bacteriologist was expanded to 300 cc with saline. At this point, the skin flap tension was checked and was felt to be adequate. It was snug, but not tight. A #15 round Gianfranco drain was then placed through a separate lateral stab incision around the inframammary fold. It was then brought back around the inframammary fold, and the tip of the drain was placed into the surgical site for the axillary dissection to help drain the drainage from that surgical site. The incision was then reapproximated first with a layer of 3-0 Vicryl [id number] sutures reapproximating the deep soft tissue. A layer of 3-0 Monocryl deep dermal sutures were then placed, followed by 4-0 Monocryl running subcuticular suture. Skin glue was applied. During this process, the PA closed the axillary incision in accordance with Dr. Mackenzie' directions. The patient tolerated the procedure well. Needle count, sponge count, and instrument counts were correct at the end of the procedure. The patient was extubated and transported to recovery in stable condition.
[2016-09-09] MEDS ORDERED: MORP15TA PO (11:27)
--- NOTE | 2016-09-09 15:16 | PATH ---
SURGICAL PATHOLOGY Attending Physician:Chris Lynch CASE STATUS: Signed Out PATIENT NAME: JESSIE EPPS PID: [id number] : 1965 DATE COLLECTED:09/06/2016 00:00 SPECIMEN: Lymph Nodes, Regional Resection CLINICAL HISTORY: LEFT BREAST CARCINOMA 1). LEFT AXILLARY LYMPH NODE DISSECTION FINAL DIAGNOSIS: 1.LEFT AXILLARY LYMPH NODE DISSECTION: 18 LYMPH NODES WITH NO EVIDENCE OF MALIGNANCY. ICD10 C50.9 GROSS DESCRIPTION: The specimen is received in formalin, labeled with the patient's name, sublabeled as left axillary lymph node dissection and consists of a piece of adipose tissue (9.5 x 4.5 x 1.7 cm) containing multiple possible lymph nodes up to 0.1 x 0.1 x 0.1 cm-1.5 x 1.3 x 0.6 cm). Section code: (A-D) multiple intact lymph nodes; (E-H) one lymph node in each cassette, serially sectioned. 09/07/16 MICRO DESCRIPTION: See diagnosis. ICD-9 CODES: CPT CODES: 1: 76515 Electronically Signed Out Edmar Adams MD [facility] Pathology [facility] [address], [place] [address] Technical component performed at [facility], [address] [place] [address] Ave[address], [address]
== END 2016-09-06 23:59 | disposition home or self-care (01) ==
LOC: SAS 10:14
PROVIDERS: ATTEND Plastic Surgery
DX: C50.312 Malignant neoplasm of lower-inner quadrant of left female breast (principal); F32.9 Major depressive disorder, single episode, unspecified; F41.9 Anxiety disorder, unspecified; F98.8 Other specified behavioral and emotional disorders with onset usually occurring in childhood and adolescence; F34.1 Dysthymic disorder; Z42.1 Encounter for breast reconstruction following mastectomy
CPT/HCPCS: 11971; 15777; 19357; 36561; 38745; 77001; C1788; C1894; J0690; J1100; J1170; J1642; J2250; J2270; J2405; J3010; J7120; L8600; Q4116